=== PATIENT | male | born 1975 | race Caucasian/White ===

== ENCOUNTER → 2017-01-14 | Outpatient (REF) ==
--- NOTE | 2017-01-14 11:27 | REP ---
REASON: Disability determination. COMPARISON EXAMINATION: None. FINDINGS: The compartments are symmetric and relatively well maintained. There is no acute fracture or destructive osseous lesion. Signed by Ck Hercules DO 01/14/2017 11:42 A
--- NOTE | 2017-01-14 11:29 | REP ---
REASON FOR EXAM: Disability determination. COMPARISON EXAMINATION: None. FINDINGS: The hip joint space is symmetric and relatively well maintained. There is no acute or destructive osseous lesion. Signed by Ck Hercules DO 01/14/2017 11:42 A
== END ==
LOC: M SMT 10:34
PROVIDERS: ATTEND Internal Medicine
DX: Z02.71 Encounter for disability determination (principal)